=== PATIENT | male | born 1965 | race African-American/Black ===

== ENCOUNTER 2019-01-01 11:08 | Day surgery (SDC) | payer OTHER ==
[2019-01-01] MEDS ORDERED: hydrALAzine 20 MG INJ IV (14:30)
[2019-01-01] MEDS ORDERED: EPHEDrine SULFATE 50 MG/5 ML SYG IV (14:30)
[2019-01-01] MEDS ORDERED: FENTAnyl 50 MCG/ML VIAL IV (14:30)
[2019-01-01] MEDS ORDERED: LABETALOL HCL 20MG INJ IV (14:30)
[2019-01-01] MEDS ORDERED: ONDANSETRON 4 MG INJ IV (14:30)
== END 2019-01-01 14:59 | disposition home or self-care (01) ==
LOC: GIL 11:08
DX: Z12.11 Encounter for screening for malignant neoplasm of colon (principal); K64.8 Other hemorrhoids; D12.3 Benign neoplasm of transverse colon; D12.2 Benign neoplasm of ascending colon; D12.8 Benign neoplasm of rectum; E78.5 Hyperlipidemia, unspecified; I10 Essential (primary) hypertension
CPT/HCPCS: 45380; 88305